=== PATIENT | male | born 1995 | race Caucasian/White ===

== ENCOUNTER 2016-05-09 00:19 | Emergency (ER) | payer OTHER ==
[2016-05-09] MEDS ORDERED: LORazepam 1 MG TAB PO ONE (01:13)
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
[2016-05-09 04:27] VITALS: BP 130/84; PULSE 90; RESP 18; TEMP 98; O2SAT 98
== END 2016-05-09 04:27 | disposition home or self-care (01) ==
DX: F10.129 Alcohol abuse with intoxication, unspecified (principal); F19.10 Other psychoactive substance abuse, uncomplicated

== ENCOUNTER 2016-07-20 20:07 | Inpatient (IN) | payer OTHER ==
[2016-07-20] MEDS ORDERED: NS 1,000 ML IV ONE ×2 (20:13→22:06)
--- NOTE | 2016-07-20 20:14 | EDPHY ---
H & P - Medical/Surgical History Other PMH: Lyme disease - Social History Smoking Status: Unknown if ever smoked Allergies/Adverse Reactions: No Known Allergies Allergy (Unverified 05/09/16 00:29) Departure - Departure Referrals: Patient,NotPresent [Primary Care Provider] - As per Instructions
[2016-07-20] MEDS ORDERED: ONDANSETRON 4 MG/2 ML VIAL ONE (20:17)
--- NOTE | 2016-07-20 20:17 | CPEKG ---
Heart Rate: 122 RR Interval: 492 P-R Interval: 132 QRSD Interval: 92 QT Interval: 316 QTC Interval: 451 P Coventry: 71 QRS Coventry: 8 T Wave Coventry: 52 EKG Severity - OTHERWISE NORMAL ECG - EKG Impression: SINUS TACHYCARDIA EKG Impression: ST ELEV, PROBABLE NORMAL EARLY REPOL PATTERN Electronically Signed By: Kwame Bianchi 20-Jul-2016 21:22:35
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
[2016-07-20 20:34] LABS: ANION GAP 15 mEq/L (8-16); CALCIUM 9.7 mg/dL (8.5-10.4); CARBON DIOXIDE 26 mEq/l (22-31); CHLORIDE 96 mEq/L (97-110); CREATININE 1.6 mg/dL (0.7-1.3); ETHANOL SERUM < 10 mg/dL (0-10); GLOMERULAR FILTRATION RATE 54; GLUCOSE 130 mg/dL (70-100); POTASSIUM 4.5 mEq/L (3.5-5.2); SALICYLATE < 1.0 mg/dL (2.0-20.0); SODIUM 137 mEq/L (134-144)
[2016-07-20] MEDS ORDERED: ONDANSETRON 4 MG/2 ML VIAL IVP ONE (20:38)
[2016-07-20] MEDS ORDERED: NS 1,000 ML IV SCH (20:45)
[2016-07-20 20:51] LABS: ADD MORPH? NO; ATYPICAL LYMPHOCYTE FLAG 10 (0-99); FRAGMENT RBC FLAG 0 (0-99); HEMATOCRIT 48.9 % (40.0-51.0); HEMOGLOBIN 16.7 g/dL (13.7-17.5); LEFT SHIFT FLG 300 (0-99); LIPEMIA HEMOLYSIS FLAG 90 (0-99); MEAN CELL HEMOGLOBIN 28.6 pg (27.9-34.1); MEAN CELL HEMOGLOBIN CONCENTR. 34.2 g/dL (32.4-36.7); MEAN CELL VOLUME 83.9 fL (81.5-99.8); MEAN PLATELET VOLUME 10.3 fL (8.7-11.7); PLATELET CLUMPS FLAG 0 (0-99); PLATELET COUNT 338 10^3/uL (150-400); RED BLOOD CELL COUNT 5.83 10^6/uL (4.40-6.38); RED CELL DISTRIBUTION WIDTH 13.1 % (11.5-15.2)
[2016-07-20 20:52] LABS: ADD DIFF? YES; ADD SCAN? NO
[2016-07-20 20:59] LABS: INR 1.15 (0.83-1.16); PROTIME(PATIENT) 14.6 SEC (12.0-15.0)
[2016-07-20 20:59] LABS: COLOR YELLOW; LEUKOCYTE ESTERASE,URINE NEGATIVE (NEGATIVE); NITRITE,URINE NEGATIVE (NEGATIVE)
[2016-07-20 21:18] LABS: ALBUMIN 4.6 g/dL (3.5-5.0); BILIRUBIN,TOTAL 1.5 mg/dL (0.1-1.4); BILIRUBIN-CONJUGATED 0.4 mg/dL (0.0-0.5); BILIRUBIN-UNCONJUGATED 1.1 mg/dL (0.0-1.1); TOTAL PROTEIN 7.6 g/dL (6.3-8.2)
[2016-07-20] MEDS ORDERED: ERTAPENEM 1 GM in NS 100 ML IV ONE (21:18)
[2016-07-20 21:39] LABS: PLATELET ESTIMATE ADEQUATE (ADEQ)
[2016-07-20] MEDS ORDERED: ACETAMINOPHEN 500 MG TAB PO ONE (22:07)
[2016-07-20 22:46] LABS: CK-MB INTERPRETATION NEGATIVE (NEGATIVE)
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
[2016-07-20] MEDS ORDERED: ACETAMINOPHEN 325 MG TAB PO PRN (23:13)
[2016-07-20] MEDS ORDERED: ONDANSETRON 4 MG/2 ML VIAL IVP PRN (23:13)
[2016-07-20] MEDS ORDERED: HYDROmorphONE/DILAUDID 1 MG/ML SYR IVP PRN (23:13)
[2016-07-21] MEDS: NS 1,000 ML IV SCH ×5 (00:40→23:27)
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
[2016-07-21] MEDS: oxyCODONE IR 5 MG TAB PO PRN ×4 (01:55→16:47)
[2016-07-21 08:24] LABS: ADD MORPH? NO; ATYPICAL LYMPHOCYTE FLAG 10 (0-99); FRAGMENT RBC FLAG 0 (0-99); HEMATOCRIT 38.5 % (40.0-51.0); HEMOGLOBIN 12.9 g/dL (13.7-17.5); LIPEMIA HEMOLYSIS FLAG 80 (0-99); MEAN CELL HEMOGLOBIN 27.9 pg (27.9-34.1); MEAN CELL HEMOGLOBIN CONCENTR. 33.5 g/dL (32.4-36.7); MEAN CELL VOLUME 83.3 fL (81.5-99.8); MEAN PLATELET VOLUME 9.6 fL (8.7-11.7); PLATELET CLUMPS FLAG 10 (0-99); PLATELET COUNT 266 10^3/uL (150-400); RED BLOOD CELL COUNT 4.62 10^6/uL (4.40-6.38); RED CELL DISTRIBUTION WIDTH 13.1 % (11.5-15.2)
[2016-07-21 08:25] LABS: LEFT SHIFT FLG 280 (0-99)
[2016-07-21] MEDS: ERTAPENEM 1 GM in NS 100 ML IV SCH (08:46)
[2016-07-21] MEDS: ENOXAPARIN 40 MG/0.4 ML SYR SC SCH (08:46)
[2016-07-21 08:48] LABS: INR 1.17 (0.83-1.16); PROTIME(PATIENT) 14.9 SEC (12.0-15.0)
[2016-07-21 09:02] LABS: ADD DIFF? YES; SCAN POSITIVE
[2016-07-21 09:05] LABS: ALANINE AMINOTRANSFERASE 308 IU/L (21-72); ALKALINE PHOSPHATASE 61 IU/L (38-126); ANION GAP 7 mEq/L (8-16); BILIRUBIN,TOTAL 0.9 mg/dL (0.1-1.4); BILIRUBIN-CONJUGATED 0.3 mg/dL (0.0-0.5); BILIRUBIN-UNCONJUGATED 0.6 mg/dL (0.0-1.1); CARBON DIOXIDE 22 mEq/l (22-31); CHLORIDE 103 mEq/L (97-110); GLOMERULAR FILTRATION RATE > 60; GLUCOSE 107 mg/dL (70-100); POTASSIUM 4.3 mEq/L (3.5-5.2); SODIUM 132 mEq/L (134-144); TOTAL PROTEIN 5.5 g/dL (6.3-8.2)
[2016-07-21 09:12] LABS: ASPARTATE AMINOTRANSFERASE 1142 IU/L (17-59)
[2016-07-21 09:37] LABS: MICROCYTES 1+; PLATELET ESTIMATE ADEQUATE (ADEQ); POLYCHROMASIA 1+
[2016-07-21 09:38] LABS: KERATOCYTES 1+
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
[2016-07-21 11:56] LABS: CK-MB INTERPRETATION NEGATIVE (NEGATIVE)
[2016-07-21] MEDS: ESCITALOPRAM OXALATE 10 MG TAB PO SCH (13:08)
[2016-07-21] MEDS: buPROPion XL 150 MG TAB PO SCH (13:08)
[2016-07-21] MEDS: lamoTRIgine 25 MG TAB PO SCH (13:08)
[2016-07-21] MEDS ORDERED: LORazepam 0.5 MG TAB PO PRN (16:34)
[2016-07-21] MEDS: GUAIFENESIN/DM 10 ML UDCUP PO PRN ×2 (16:46→22:06)
[2016-07-21 17:24] LABS: ADD SCAN? YES
[2016-07-21] MEDS: GABAPENTIN 300 MG CAP PO SCH (20:49)
[2016-07-21] MEDS: guaiFENesin 600 MG TAB.ER PO SCH (20:49)
[2016-07-22] MEDS: oxyCODONE IR 5 MG TAB PO PRN ×5 (00:59→20:43)
[2016-07-22] MEDS: GUAIFENESIN/DM 10 ML UDCUP PO PRN ×3 (04:07→20:43)
[2016-07-22 05:41] LABS: ALANINE AMINOTRANSFERASE 229 IU/L (21-72); ALBUMIN 2.7 g/dL (3.5-5.0); ALKALINE PHOSPHATASE 62 IU/L (38-126); ANION GAP 6 mEq/L (8-16); ASPARTATE AMINOTRANSFERASE 502 IU/L (17-59); BILIRUBIN,TOTAL 0.7 mg/dL (0.1-1.4); CALCIUM 8.1 mg/dL (8.5-10.4); CARBON DIOXIDE 26 mEq/l (22-31); CHLORIDE 105 mEq/L (97-110); CREATININE 0.8 mg/dL (0.7-1.3); GLOMERULAR FILTRATION RATE > 60; GLUCOSE 106 mg/dL (70-100); POTASSIUM 4.1 mEq/L (3.5-5.2); SODIUM 137 mEq/L (134-144)
[2016-07-22] MEDS: NS 1,000 ML IV SCH ×3 (06:06→20:05)
[2016-07-22 06:11] LABS: CK-MB INTERPRETATION NEGATIVE (NEGATIVE)
[2016-07-22 06:17] LABS: CREATINE KINASE-MB FRACTION 8.15 ng/mL (0-3.19)
[2016-07-22] MEDS: ESCITALOPRAM OXALATE 10 MG TAB PO SCH (08:18)
[2016-07-22] MEDS: ENOXAPARIN 40 MG/0.4 ML SYR SC SCH (08:18)
[2016-07-22] MEDS: buPROPion XL 150 MG TAB PO SCH (08:19)
[2016-07-22] MEDS: guaiFENesin 600 MG TAB.ER PO SCH ×2 (08:19→20:05)
[2016-07-22] MEDS: lamoTRIgine 25 MG TAB PO SCH (08:20)
[2016-07-22] MEDS: ERTAPENEM 1 GM in NS 100 ML IV SCH (08:21)
[2016-07-22] MEDS: OMEGA-3 FATTY ACIDS 1,000 MG CAP PO SCH (08:36)
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
[2016-07-22] MEDS: GABAPENTIN 300 MG CAP PO SCH (20:05)
[2016-07-23] MEDS: NS 1,000 ML IV SCH (02:38)
[2016-07-23] MEDS: oxyCODONE IR 5 MG TAB PO PRN ×5 (02:41→20:37)
[2016-07-23 05:27] LABS: HEMOGLOBIN 12.6 g/dL (13.7-17.5); MEAN CELL HEMOGLOBIN 28.5 pg (27.9-34.1); MEAN CELL HEMOGLOBIN CONCENTR. 33.2 g/dL (32.4-36.7); RED BLOOD CELL COUNT 4.42 10^6/uL (4.40-6.38); RED CELL DISTRIBUTION WIDTH 13.2 % (11.5-15.2)
[2016-07-23 05:45] LABS: ALANINE AMINOTRANSFERASE 189 IU/L (21-72); ALBUMIN 2.7 g/dL (3.5-5.0); ALKALINE PHOSPHATASE 62 IU/L (38-126); ANION GAP 7 mEq/L (8-16); ASPARTATE AMINOTRANSFERASE 253 IU/L (17-59); BILIRUBIN,TOTAL 0.6 mg/dL (0.1-1.4); CALCIUM 8.2 mg/dL (8.5-10.4); CARBON DIOXIDE 26 mEq/l (22-31); CHLORIDE 105 mEq/L (97-110); CREATININE 0.7 mg/dL (0.7-1.3); GLOMERULAR FILTRATION RATE > 60; GLUCOSE 88 mg/dL (70-100); POTASSIUM 3.8 mEq/L (3.5-5.2); SODIUM 138 mEq/L (134-144); TOTAL PROTEIN 5.2 g/dL (6.3-8.2)
[2016-07-23 06:25] LABS: CK-MB INTERPRETATION NEGATIVE (NEGATIVE); CREATINE KINASE-MB FRACTION 2.92 ng/mL (0-3.19)
[2016-07-23] MEDS: ENOXAPARIN 40 MG/0.4 ML SYR SC SCH (07:54)
[2016-07-23] MEDS: OMEGA-3 FATTY ACIDS 1,000 MG CAP PO SCH (07:55)
[2016-07-23] MEDS: ESCITALOPRAM OXALATE 10 MG TAB PO SCH (07:55)
[2016-07-23] MEDS: ERTAPENEM 1 GM in NS 100 ML IV SCH (07:55)
[2016-07-23] MEDS: lamoTRIgine 25 MG TAB PO SCH (07:55)
[2016-07-23] MEDS: guaiFENesin 600 MG TAB.ER PO SCH ×2 (07:55→20:36)
[2016-07-23] MEDS: buPROPion XL 150 MG TAB PO SCH (07:55)
[2016-07-23] MEDS ORDERED: HYDROCODONE/APAP 5/325 TAB PO PRN (10:56)
[2016-07-23] MEDS: GUAIFENESIN/DM 10 ML UDCUP PO PRN (11:23)
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
[2016-07-23] MEDS: GABAPENTIN 300 MG CAP PO SCH (20:33)
[2016-07-24] MEDS: oxyCODONE IR 5 MG TAB PO PRN ×4 (00:59→15:03)
[2016-07-24] MEDS: ERTAPENEM 1 GM in NS 100 ML IV SCH (10:12)
[2016-07-24] MEDS: OMEGA-3 FATTY ACIDS 1,000 MG CAP PO SCH (10:13)
[2016-07-24] MEDS: ESCITALOPRAM OXALATE 10 MG TAB PO SCH (10:13)
[2016-07-24] MEDS: ENOXAPARIN 40 MG/0.4 ML SYR SC SCH (10:13)
[2016-07-24] MEDS: guaiFENesin 600 MG TAB.ER PO SCH ×2 (10:13→20:27)
[2016-07-24] MEDS: buPROPion XL 150 MG TAB PO SCH (10:13)
[2016-07-24] MEDS: lamoTRIgine 25 MG TAB PO SCH (10:13)
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
[2016-07-24] MEDS: GABAPENTIN 300 MG CAP PO SCH (20:26)
[2016-07-25 05:09] LABS: ALANINE AMINOTRANSFERASE 188 IU/L (21-72); ALBUMIN 3.3 g/dL (3.5-5.0); ALKALINE PHOSPHATASE 70 IU/L (38-126); ANION GAP 7 mEq/L (8-16); ASPARTATE AMINOTRANSFERASE 168 IU/L (17-59); BILIRUBIN,TOTAL 0.7 mg/dL (0.1-1.4); BILIRUBIN-CONJUGATED 0.3 mg/dL (0.0-0.5); BILIRUBIN-UNCONJUGATED 0.4 mg/dL (0.0-1.1); CALCIUM 9.1 mg/dL (8.5-10.4); CARBON DIOXIDE 24 mEq/l (22-31); CHLORIDE 105 mEq/L (97-110); CREATININE 0.8 mg/dL (0.7-1.3); GLOMERULAR FILTRATION RATE > 60; GLUCOSE 102 mg/dL (70-100); SODIUM 136 mEq/L (134-144); TOTAL PROTEIN 6.3 g/dL (6.3-8.2)
[2016-07-25 05:48] LABS: CK-MB INTERPRETATION NEGATIVE (NEGATIVE); CREATINE KINASE-MB FRACTION 1.09 ng/mL (0-3.19)
[2016-07-25 07:18] VITALS: TEMP 98.5; O2SAT 94
[2016-07-25] MEDS: ENOXAPARIN 40 MG/0.4 ML SYR SC SCH (10:15)
[2016-07-25] MEDS: buPROPion XL 150 MG TAB PO SCH (10:16)
[2016-07-25] MEDS: lamoTRIgine 25 MG TAB PO SCH (10:16)
[2016-07-25] MEDS: guaiFENesin 600 MG TAB.ER PO SCH (10:16)
[2016-07-25] MEDS: ESCITALOPRAM OXALATE 10 MG TAB PO SCH (10:16)
[2016-07-25] MEDS: OMEGA-3 FATTY ACIDS 1,000 MG CAP PO SCH (10:16)
[2016-07-25] MEDS: ERTAPENEM 1 GM in NS 100 ML IV SCH (10:22)
[2016-07-25 12:00] VITALS: BP 141/93; PULSE 92; RESP 18
--- NOTE | 2016-07-25 14:00 | GDS ---
[f rep st] DISCHARGE SUMMARY DISCHARGE DIAGNOSES: 1. Aspiration pneumonia. 2. Rhabdomyolysis. 3. Left temporal scalp hematoma. 4. Acute renal failure secondary to rhabdomyolysis. 5. Transaminitis. 6. Left upper extremity weakness. 7. Metabolic encephalopathy. 8. Substance abuse. CONSULTATIONS: 1. Trauma. 2. Dr. Fuentes of orthopedics. PHYSICAL EXAM: GENERAL: The patient is alert. VITAL SIGNS: Afebrile at 36.9. Pulse is 92. Resp iratory rate is 18. Blood pressure is 141/93, saturating 94% on room air. I have seen and evaluate d the patient on the day of discharge. HOSPITAL COURSE: The patient is a 21-year-old male who was found intoxicated [facility]. He was evaluated and diagnosed with: 1. Aspiration pneumonia. He was treated during this hospitalization with IV Invanz. He has been t ransitioned to clindamycin at the time of disposition and will continue this in the outpatient [facility]. 2. Rhabdomyolysis. This is secondary to being immobile for an extended amount of time on top of al cohol or drug use. His rhabdomyolysis is almost completely resolved. He received significant IV hy dration at the time of admission and is urinating appropriately. 3. Left temporal scalp hematoma. This is stable at the time of disposition. 4. Acute renal failure. This is secondary to the patient's rhabdomyolysis and has resolved. 5. Transaminitis. This is continuing to improve but will require outpatient followup. 6. Left upper extremity weakness. This is in the setting of being down for an extended amount of t blu. I appreciate Dr. Fuentes's Ortho consultation. Please refer to note. There is no intervention w arranted at this time, and the patient will follow up with Dr. Fuentes in the outpatient setting. 7. Metabolic encephalopathy. This is multifactorial and has resolved with hydration. 8. History of substance abuse. I have educated the patient at length regarding his substance abuse and need for further outpatient therapy. He and his mom are both in agreement with this plan. DISPOSITION: The patient will be discharged to [facility] with his mother to deal with his subst ance abuse problem. FOLLOWUP: Follow up will be with Dr. Fuentes of orthopedics as well as the patient's primary psychiatr ist and Dr. Yoon of Neurosurgery. There are no pending studies. DISCHARGE MEDICATIONS: I have not provided any new prescriptions for the patient other than clindam ycin. He has been reinitiated on all of his previously prescribed home medications. I reviewed the patient's disposition with Dr. Martinez. I have spent greater than 35 minutes in the care, coordination, and management of the patient's discharge. /[id number]/MODL
== END 2016-07-25 13:55 | disposition home or self-care (01) | DRG 177 ==
LOC: EDUNIT# → F3N 23:15
PROVIDERS: ADMIT Internal Medicine; ATTEND Internal Medicine
DX: J69.0 Pneumonitis due to inhalation of food and vomit (principal); G93.41 Metabolic encephalopathy; M62.82 Rhabdomyolysis; N17.9 Acute kidney failure, unspecified; S00.03XA Contusion of scalp, initial encounter; R74.0 Nonspecific elevation of levels of transaminase and lactic acid dehydrogenase [LDH]; G58.8 Other specified mononeuropathies; F19.10 Other psychoactive substance abuse, uncomplicated
CPT/HCPCS: 80305; 82947-QW; 92507-GN; 92523-GN; 96365; 97116-GP; 97162-GP; 97166-GO; 97530-GO; 97530-GP; 97532-GN; 97535-GO; G0397; G0480; J1170; J1335; J1650; J2405

== ENCOUNTER 2016-08-29 20:39 | Emergency (ER) | payer OTHER ==
[2016-08-29 20:44] VITALS: TEMP 98.1; O2SAT 97
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
[2016-08-29 22:46] VITALS: BP 164/100; PULSE 78; RESP 18
== END 2016-08-29 22:46 | disposition home or self-care (01) ==
DX: S09.90XA Unspecified injury of head, initial encounter (principal); F17.200 Nicotine dependence, unspecified, uncomplicated; V00.131A Fall from skateboard, initial encounter; Y92.830 Public park as the place of occurrence of the external cause; Y99.8 Other external cause status; Y93.51 Activity, roller skating (inline) and skateboarding

== ENCOUNTER 2016-09-06 09:26 | Emergency (ER) | payer OTHER ==
[2016-09-06 09:45] LABS: % IMMATURE GRANULYOCYTES 0.2 % (0.0-1.1); ABSOLUTE IMMATURE GRANULOCYTES 0.01 10^3/uL (0.00-0.10); ADD DIFF? NO; ADD MORPH? NO; ADD SCAN? NO; ATYPICAL LYMPHOCYTE FLAG 20 (0-99); FRAGMENT RBC FLAG 0 (0-99); HEMOGLOBIN 13.3 g/dL (13.7-17.5); LEFT SHIFT FLG 0 (0-99); LIPEMIA HEMOLYSIS FLAG 80 (0-99); MEAN CELL HEMOGLOBIN 28.4 pg (27.9-34.1); MEAN CELL HEMOGLOBIN CONCENTR. 33.3 g/dL (32.4-36.7); MEAN CELL VOLUME 85.5 fL (81.5-99.8); MEAN PLATELET VOLUME 9.6 fL (8.7-11.7); PLATELET CLUMPS FLAG 0 (0-99); PLATELET COUNT 307 10^3/uL (150-400); RED BLOOD CELL COUNT 4.68 10^6/uL (4.40-6.38); RED CELL DISTRIBUTION WIDTH 12.9 % (11.5-15.2)
--- NOTE | 2016-09-06 09:47 | CPEKG ---
Heart Rate: 67 RR Interval: 896 P-R Interval: 160 QRSD Interval: 104 QT Interval: 408 QTC Interval: 431 P [place]: 51 QRS [place]: 9 T Wave [place]: 36 EKG Severity - NORMAL ECG - EKG Impression: SINUS RHYTHM Electronically Signed By: Annmarie Perez 06-Sep-2016 15:03:05
[2016-09-06 09:57] LABS: ANION GAP 10 mEq/L (8-16); CARBON DIOXIDE 26 mEq/l (22-31); CHLORIDE 105 mEq/L (97-110); CREATININE 0.8 mg/dL (0.7-1.3); ETHANOL SERUM < 10 mg/dL (0-10); GLOMERULAR FILTRATION RATE > 60; GLUCOSE 91 mg/dL (70-100); POTASSIUM 4.4 mEq/L (3.5-5.2); SALICYLATE < 1.0 mg/dL (2.0-20.0); SODIUM 141 mEq/L (134-144)
--- NOTE | 2016-09-06 09:57 | EDPHY ---
H & P Stated Complaint: OD on generic benzo in attempt to get high Time Seen by Provider: 09/06/16 09:30 HPI/ROS: CHIEF COMPLAINT: overdose HISTORY OF PRESENT ILLNESS: 21-year-old male presents emergency department by ambulance for somnolence after an unintentional overdose on a powdered benzodiazepine that he purchased online. Patient told EMS he bought this online in an attempt to get high. Patient is living in a sober living house. He denies other drug use. Patient states he takes Zoloft and gabapentin. He reports Lyme disease, depression, anxiety, peripheral neuropathy. Patient denies suicidal ideations. He reports he took this medication orally. EMS found a large bottle of Tylenol in the patient's room, he reports he takes 2 Tylenol every night for his peripheral neuropathy. He denies overdose on this. Patient denies alcohol use. Patient denies chest pain or shortness of breath. REVIEW OF SYSTEMS: A comprehensive 10 point review of systems is otherwise negative aside from elements mentioned in the history of present illness. Source: Patient Exam Limitations: No limitations - Personal History Current Tetanus/Diphtheria Vaccine: Unsure Current Tetanus Diphtheria and Acellular Pertussis (TDAP): Unsure Tetanus Vaccine Date: 2011 - Medical/Surgical History Hx Asthma: No Hx Chronic Respiratory Disease: No Hx Diabetes: No Hx Cardiac Disease: No Hx Renal Disease: No Hx Cirrhosis: No Hx Alcoholism: No Hx HIV/AIDS: No Hx Splenectomy or Spleen Trauma: No Other PMH: Lyme disease , depression, adhd, - Social History Smoking Status: Current every day smoker - Physical Exam Exam: Physical Exam Gen: Somnolent, falls asleep during exam HEENT: PERRL, moist mucous membranes NECK: no meningismus CV: regular rate and regular rhythm, port in right side of chest PULM: CTAB, no wheezes ABDOMEN: soft, non tender to palpation, BS present BACK: No CVA tenderness NEURO: Follows commands, no facial asymmetry, moves all extremities EXTREMITIES: normal appearing SKIN: no rash or break in skin on exposed skin PSYCH: Denies suicidal ideations Constitutional: Initial Vital Signs Temperature (C) 36.4 C 09/06/16 09:42 Heart Rate 67 09/06/16 09:42 Respiratory Rate 16 09/06/16 09:42 Blood Pressure 120/82 H 09/06/16 09:42 O2 Sat (%) 96 09/06/16 09:42 O2 Delivery Mode Room Air Allergies/Adverse Reactions: amoxicillin [From Augmentin] Allergy (Verified 07/20/16 22:15) ciprofloxacin Allergy (Verified 08/29/16 20:44) clavulanic acid [From Augmentin] Allergy (Verified 07/20/16 22:15) levofloxacin [From Levaquin] Allergy (Verified 08/29/16 20:44) Home Medications: Medication Instructions Recorded Escitalopram Oxalate [Lexapro 10 10 mg PO DAILY 07/20/16 MG] Gabapentin [Neurontin 300 MG (*)] 600 mg PO HS 07/20/16 buPROPion XL [Wellbutrin 150mg XL] 300 mg PO DAILY 07/20/16 clonIDINE [Catapres (*)] 0.1 mg PO HS 07/20/16 lamoTRIgine [LaMICtal] 75 mg PO DAILY 07/20/16 Acetaminophen [Tylenol 325mg (*)] 650 mg PO Q4 PRN #0 tab 07/25/16 Medical Decision Making - Diagnostics EKG Interpretation: EKG shows normal sinus rhythm, rate 67, normal axis, good R-wave progression, no ST or T-wave abnormalities ED Course/Re-evaluation: IV established by EMS, patient is placed on the dielectric machine operator with continuous pulse ox. Labs and EKG obtained. Will continue to monitor the patient until he becomes more alert. CBC and chemistry panel are unremarkable, patient has Tylenol and salicylate level are normal, ethanol level less than 10. 1430-patient ambulatory in the emergency department without difficulty, he is stable on his feet. He has normal vital signs, patient was monitor with a continuous pulse ox during his stay in the emergency department and kept his room air oxygen saturations above 94%. Patient will be discharged in the company of the mentor at his sober living facility. Plan is to take him to [facility], a treatment facility in [place] that his mother arranged. Differential Diagnosis: Diagnosis considered but not limited to polysubstance abuse, electrolyte abnormality, intentional overdose, unintentional overdose. - Data Points Laboratory Results: Laboratory Results 09/06/16 09:30 09/06/16 09:30 09/06/16 09/06/16 09:30 09:30 WBC 5.07 10^3/uL 10^3/uL (3.80-9.50) RBC 4.68 10^6/uL 10^6/uL (4.40-6.38) Hgb 13.3 g/dL L g/dL (13.7-17.5) Hct 40.0 % % (40.0-51.0) MCV 85.5 fL fL (81.5-99.8) MCH 28.4 pg pg (27.9-34.1) MCHC 33.3 g/dL g/dL (32.4-36.7) RDW 12.9 % % (11.5-15.2) Plt Count 307 10^3/uL 10^3/uL (150-400) MPV 9.6 fL fL (8.7-11.7) Neut % (Auto) 49.3 % % (39.3-74.2) Lymph % (Auto) 38.5 % % (15.0-45.0) [place] % (Auto) 6.9 % % (4.5-13.0) Eos % (Auto) 3.7 % % (0.6-7.6) Baso % (Auto) 1.4 % % (0.3-1.7) Nucleat RBC Rel Count 0.0 % % (0.0-0.2) Absolute Neuts (auto) 2.50 10^3/uL 10^3/uL (1.70-6.50) Absolute Lymphs (auto) 1.95 10^3/uL 10^3/uL (1.00-3.00) Absolute Monos (auto) 0.35 10^3/uL 10^3/uL (0.30-0.80) Absolute Eos (auto) 0.19 10^3/uL 10^3/uL (0.03-0.40) Absolute Basos (auto) 0.07 10^3/uL 10^3/uL (0.02-0.10) Absolute Nucleated RBC 0.00 10^3/uL 10^3/uL (0-0.01) Immature Gran % 0.2 % % (0.0-1.1) Immature Gran # 0.01 10^3/uL 10^3/uL (0.00-0.10) Sodium 141 mEq/L mEq/L (134-144) Potassium 4.4 mEq/L mEq/L (3.5-5.2) Chloride 105 mEq/L mEq/L (97-110) Carbon Dioxide 26 mEq/l mEq/l (22-31) Anion Gap 10 mEq/L mEq/L (8-16) BUN 16 mg/dL mg/dL (7-23) Creatinine 0.8 mg/dL mg/dL (0.7-1.3) Estimated GFR > 60 Glucose 91 mg/dL mg/dL (70-100) Calcium 10.0 mg/dL mg/dL (8.5-10.4) Salicylates < 1.0 mg/dL L mg/dL (2.0-20.0) Acetaminophen < 10 mcg/mL L mcg/mL (10.0-30.0) Ethyl Alcohol < 10 mg/dL mg/dL (0-10) Departure - Departure Disposition: Home, Routine, Self-Care Clinical Impression: Polysubstance abuse Overdose Qualifiers: Encounter type: initial encounter Injury intent: accidental or unintentional Qualified Code(s): T50.901A - Poisoning by unspecified drugs, medicaments and biological substances, accidental (unintentional), initial encounter Condition: Good Instructions: Polysubstance Abuse (ED), Benzodiazepine Overdose (ED) Additional Instructions: Follow up with your drug and alcohol counselors as discussed. Referrals: Patient,NotPresent [Unknown] - As per Instructions
[2016-09-06 15:57] VITALS: BP 111/73; PULSE 86; RESP 18; TEMP 97.3; O2SAT 97
== END 2016-09-06 15:55 | disposition home or self-care (01) ==
LOC: EDUNIT#
DX: T42.4X1A Poisoning by benzodiazepines, accidental (unintentional), initial encounter (principal); F17.200 Nicotine dependence, unspecified, uncomplicated; F19.10 Other psychoactive substance abuse, uncomplicated
CPT/HCPCS: 80305; G0480